=== PATIENT | male | born 1935 | race Caucasian/White ===

== ENCOUNTER 2023-06-15 12:31 | Outpatient (CLI) | payer MEDICARE, SELFPAY ==
--- NOTE | ~2023-06-15 | CT_ITS ---
CT ANGIOGRAM NECK AND HEAD History: Right frontal CVA. Technique: Axial noncontrast imaging of the brain was performed. Serial spiral axial images through t he head and neck were then obtained during arterial phase IV injection of 100 cc of Omnipaque 350. 3- D postprocessing and MIP images were then reconstructed on the remote workstation. Dose reduction bhavesh hnique was used on this scan by utilizing automated exposure control and iterative reconstruction bhavesh hnique. The dose-length product (DLP) was 1718.13 mGy-cm. CTA neck findings: Bilateral vertebral arteries are patent. Bilateral common carotid, internal carot id, and external carotid arteries are patent. There is mixed calcified and soft plaque at the origin of the right internal carotid artery, with 50% stenosis. There is mixed calcified and soft plaque at the proximal left internal carotid artery, with high-grade stenosis, approximately 90 % in degree. Th e proximal right internal carotid artery demonstrates 50% stenosis relative to the normal distal monty ry lumen diameter. The proximal left internal carotid artery demonstrates 90% stenosis relative to th e normal distal artery lumen diameter. There is probable mild dependent atelectatic change in the left upper lobe. CTA head findings: Distal vertebral arteries, basilar artery, posterior cerebral arteries are patent. Distal internal carotid arteries, middle ureters, anterior to arteries are patent. No large vessel o cclusion. No stenosis or aneurysm. Axial noncontrast imaging demonstrates no evidence for intracranial hemorrhage. Questional subtle foc al infarct in the right frontal lobe. Ventricles and subarachnoid spaces are mildly dilated. Orbits a re grossly normal. Paranasal sinuses and mastoid air cells are clear. 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 Low-grade (50%) stenosis at the origin of the right internal carotid artery. Reviewed, dictated and finalized at [facility]. ANICAL INTERN Impression: High-grade (95%) stenosis of the proximal left internal carotid artery. Low-grade (50%) stenosis at the origin of the right internal carotid artery.
[2023-08-02 09:26] LABS: Estimated Glomerular Filt Rate > 60
== END 2023-06-15 12:32 | disposition home or self-care (01) ==
LOC: ANHIMG 12:34
PROVIDERS: PCP Family Medicine; Visit Provider Student in an Organized Health Care Education/Training Program
DX: I63.9 Cerebral infarction, unspecified (principal); I65.23 Occlusion and stenosis of bilateral carotid arteries
CPT/HCPCS: 70496; 70498; Q9967

== ENCOUNTER 2023-06-29 10:29 | Outpatient (CLI) | payer MEDICARE, SELFPAY ==
--- NOTE | 2023-06-29 10:42 | ECHO_ITS ---
Patient Info Name: Kalyan Charles Age: 87 years : 1935 Gender: Male Ht: 69 in Wt: 182 lbs BSA: 2.02 m2 HR: 65 bpm BP: 162 / 92 mmHg Heart Rhythm: Sinus Rhythm Technical Quality: Good Exam Date: 06/29/2023 11:09 AM Exam Location: Echo Lab Patient Status: Outpatient Admit Date: 06/29/2023 Staff Ordering Physician: Kailey Mcclellan MD Grease Packer: Krystal Gan RDCS Attending Provider: Kailey Mcclellan MD Exam Type: CA echo doppler w bubble study Study Info Indications - CARDIAC ARRYTHEMIA Complete two-dimensional, color flow and Doppler transthoracic echocardiogram is performed with agitated saline. Summary 1. Left ventricular chamber dimension is normal. 2. Left ventricular systolic function is normal, estimated at 60-65%. 3. There is moderate concentric increased left ventricular wall thickness. 4. The left ventricular diastolic function is abnormal. 5. E/e' 15 is elevated. 6. Left atrial chamber dimension is mildly enlarged. 7. There is moderate aortic valve sclerosis. 8. There is mild to moderate aortic valve regurgitation. 9. There is mild to moderate mitral valve regurgitation. 10. There is trace tricuspid valve regurgitation. 11. No pulmonary hypertension, estimated pulmonary arterial systolic pressure is 26 mmHg. Left Ventricle E/e' 15 is elevated. Left ventricular chamber dimension is normal. Left ventricular systolic function is normal, estimated at 60-65%. There is moderate concentric increased left ventricular wall thickness. The left ventricular diastolic function is abnormal. Right Ventricle Right ventricular systolic function is normal and with normal TAPSE 3.6 cm. Right ventricular chamber dimension is normal. Left Atria Left atrial chamber dimension is mildly enlarged. Right Atria Right atrial chamber dimension is normal. Atrial Septum Agitated saline injection with and without valsalva maneuver opacified right side cardiac chambers without shunt to left side cardiac chambers. Intact interatrial septum visualized by 2D and agitated saline imaging. Aortic Valve The aortic valve is trileaflet. There is moderate aortic valve sclerosis. There is no aortic valve stenosis. There is mild to moderate aortic valve regurgitation. Pulmonic Valve There is no pulmonic regurgitation. Mitral Valve There is no mitral valve stenosis. There is mild to moderate mitral valve regurgitation. Tricuspid Valve There is trace tricuspid valve regurgitation. No pulmonary hypertension, estimated pulmonary arterial systolic pressure is 26 mmHg. Pericardium/Pleural There is no pericardial effusion. Inferior Vena Cava Normal inferior vena cava with >50% collapse upon inspiration consistent with normal right atrial pressure, 5 mmHg. Aorta The aortic root size at the sinus of Valsalva is normal. Left Ventricular Outflow Tract Name Value Normal LVOT 2D LVOT Diameter 2.2 cm LVOT Doppler LVOT Peak Gradient 3 mmHg LVOT Mean Gradient 2 mmHg LVOT VTI 21 cm LVOT VTI/AV VTI Ratio 0.5 LVOT Stroke Volume 79 ml LVOT CO
== END 2023-06-29 10:30 | disposition home or self-care (01) ==
PROVIDERS: PCP Family Medicine; Visit Provider Student in an Organized Health Care Education/Training Program
DX: I49.9 Cardiac arrhythmia, unspecified (principal); I63.9 Cerebral infarction, unspecified; R93.1 Abnormal findings on diagnostic imaging of heart and coronary circulation; I35.8 Other nonrheumatic aortic valve disorders; I35.1 Nonrheumatic aortic (valve) insufficiency; I34.0 Nonrheumatic mitral (valve) insufficiency; I07.1 Rheumatic tricuspid insufficiency
CPT/HCPCS: 93306; 96375